=== PATIENT | male | born 1990 | race Hispanic/Latino ===

== ENCOUNTER 2016-11-23 01:17 | Emergency (ER) | payer OTHER ==
[2016-11-23 01:28] VITALS: BP 125/75; PULSE 104; RESP 16; TEMP 97.5; O2SAT 100
[2016-11-23] MEDS ORDERED: Lidocaine 1% w Epi 1:100,000 Inj IJ STA (01:30)
[2016-11-23] MEDS ORDERED: Lidocaine 2% w Epi 1:100,000 Inj IJ STA (01:38)
[2016-11-23] MEDS ORDERED: Lidocaine 2% w Epi 1:100,000 Inj IJ ONE ×2 (01:38→03:19)
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
[2016-11-23] MEDS ORDERED: Fluorescein 1 mg Ophthalmic Strip ONE (06:05)
== END 2016-11-23 01:53 | disposition left against medical advice (07) ==
LOC: H.ER 01:17
DX: S01.111A Laceration without foreign body of right eyelid and periocular area, initial encounter (principal); S09.90XA Unspecified injury of head, initial encounter; Y04.0XXA Assault by unarmed brawl or fight, initial encounter

== ENCOUNTER 2016-11-23 02:22 | Emergency (ER) | payer OTHER ==
[2016-11-23 02:45] VITALS: BMI 24.3
[2016-11-23 02:48] VITALS: BP 140/89; PULSE 80; RESP 16; TEMP 98.6; O2SAT 100
[2016-11-23] MEDS ORDERED: Lidocaine 2% w Epi 1:100,000 Inj IJ ONE (03:21)
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
== END 2016-11-23 06:23 | disposition home or self-care (01) ==
LOC: H.ER 02:22
DX: S01.111A Laceration without foreign body of right eyelid and periocular area, initial encounter (principal); S02.31XA Fracture of orbital floor, right side, initial encounter for closed fracture; Y09 Assault by unspecified means